=== PATIENT | male | born 1940 | race Caucasian/White ===

== ENCOUNTER → 2016-12-19 | Outpatient (CLI) | payer MEDICARE ==
--- NOTE | 2016-12-19 12:49 | REP ---
Supine abdomen single AP view: There are no comparisons. The bowel gas pattern is normal. There is mild scoliosis convex right at the thoracolumbar junction, possibly positional. There are calcifications in the pelvis inferiorly, likely phleboliths. The skeletal structures and soft tissues are otherwise unremarkable for patient age. Impression: Normal bowel gas pattern. Signed by Tomasz Valdez MD 12/19/2016 12:40 P
[2016-12-19 13:56] LABS: BASO # 0.1 10^3/uL (0.0-0.2); BASO % 0.5 % (0.0-1.0); EOS # 0.1 10^3/uL (0.0-0.50); EOS % 0.9 % (0.0-3.0); IMMATURE GRANULOCYTE % 0.3 % (0-0); LYMPH # 1.3 10^3/uL (1.5-4.5); LYMPH % 9.6 % (24.0-44.0); MEAN CORPUSCULAR HEMOGLOBIN 28.8 pg (27.0-33.0); MEAN CORPUSCULAR HGB CONC 32.6 g/dl (32.0-36.5); MEAN CORPUSCULAR VOLUME 88.4 fl (80.0-96.0); MONO # 0.8 10^3/uL (0.0-0.8); MONO % 6.4 % (0.0-5.0); NEUTROPHILS # 10.7 10^3/uL (1.8-7.7); NEUTROPHILS % 82.3 % (36.0-66.0)
[2016-12-19 15:04] LABS: ALBUMIN/GLOBULIN RATIO 0.98 (1.00-1.93); ALKALINE PHOSPHATASE 79 U/L (45-117); ALT/SGPT 23 U/L (12-78); ANION GAP 7 MEQ/L (8-16); AST/SGOT 18 U/L (15-37); BILIRUBIN,TOTAL 0.5 MG/DL (0.2-1.0); BLOOD UREA NITROGEN 19 MG/DL (7-18); CALCIUM LEVEL 9.1 MG/DL (8.8-10.2); CARBON DIOXIDE LEVEL 29 MEQ/L (21-32); CHLORIDE LEVEL 102 MEQ/L (98-107); CREATININE FOR GFR 1.24 MG/DL (0.70-1.30); GLOMERULAR FILTRATION RATE > 60.0 (>42); GLUCOSE, FASTING 117 MG/DL (83-110); POTASSIUM SERUM 4.1 MEQ/L (3.5-5.1); SODIUM LEVEL 138 MEQ/L (136-145); TOTAL PROTEIN 8.1 GM/DL (6.4-8.2)
[2016-12-20 14:09] LABS: PSA TOTAL 1.9 ng/mL (0.0-4.0)
== END ==
LOC: M WUC 12:04
PROVIDERS: ATTEND Physician Assistant
DX: R10.30 Lower abdominal pain, unspecified (principal)

== ENCOUNTER → 2016-12-19 | Outpatient (REF) | payer MEDICARE, OTHER | LOC: M LAB REF 16:22 | PROVIDERS: ATTEND Physician Assistant | DX: R10.30 Lower abdominal pain, unspecified (principal) ==

== ENCOUNTER 2017-02-15 15:58 | Inpatient (IN) | payer MEDICARE, OTHER ==
[~2017-02-15] VITALS: Ht 165.1 cm; Wt 54.3 kg
[2017-02-15] MEDS ORDERED: LABETALOL HCL 100 MG/20 ML VIAL IV STA (17:46)
--- NOTE | 2017-02-15 18:10 | REPUSA ---
HISTORY: CVA. TECHNIQUE: Axial CT imaging of brain without contrast. DLP= 775.7 mGy-cm. FINDINGS: There is suggestion of a tiny lacunar infarct in the left mid jacque seen on image 6. There is no evidence of intracranial hemorrhage, mass, midline shift or mass effect, or evidence of acute i nfarct seen on the noncontrast examination. The ventricles and sulci are of normal size for this age group. There is decreased CT attenuation in the periventricular white matter consistent with with n onspecific microvascular ischemic changes. No skull fracture seen. Paranasal sinuses and mastoids a re clear. CP angle regions are normal. IMPRESSION: 1. Question of a tiny old lacunar infarct in the left mid jacque, with no other evidence o f intracranial hemorrhage, mass, or acute infarct seen on the noncontrast examination. 2. Mild nonspecific microvascular ischemic changes in the periventricular white matter. Clinical correlation and followup MRI imaging may be warranted as clinically indicated.
[2017-02-15] MEDS ORDERED: ASPIRIN 81 MG CHEW TABLET PO ONE (18:30)
[2017-02-15 18:58] LABS: MEAN CORPUSCULAR HEMOGLOBIN 28.8 pg (27.0-33.0); MEAN CORPUSCULAR HGB CONC 33.3 g/dl (32.0-36.5); MEAN CORPUSCULAR VOLUME 86.7 fl (80.0-96.0); PLATELET COUNT, AUTOMATED 294 10^3/uL (150-450); RED CELL DISTRIBUTION WIDTH 12.6 % (11.5-14.5); WHITE BLOOD COUNT 8.4 10^3/uL (4.0-10.0)
[2017-02-15 19:06] LABS: ANION GAP 6 MEQ/L (8-16); BLOOD UREA NITROGEN 16 MG/DL (7-18); CALCIUM LEVEL 8.9 MG/DL (8.8-10.2); CARBON DIOXIDE LEVEL 29 MEQ/L (21-32); CHLORIDE LEVEL 105 MEQ/L (98-107); CREATININE FOR GFR 1.13 MG/DL (0.70-1.30); GLOMERULAR FILTRATION RATE > 60.0 (>42); GLUCOSE, FASTING 99 MG/DL (83-110); POTASSIUM SERUM 3.7 MEQ/L (3.5-5.1); SODIUM LEVEL 140 MEQ/L (136-145)
[2017-02-15 19:09] LABS: INR 0.93
[2017-02-15] MEDS ORDERED: ACETAMINOPHEN TAB 650MG DOSE (2X325MG) PO PRN (20:15)
[2017-02-15] MEDS ORDERED: ATORVASTATIN 20 MG TAB PO ONE (20:15)
[2017-02-15] MEDS ORDERED: ONDANSETRON 4MG/2ML VIAL (J2405) IV PRN (20:15)
--- NOTE | 2017-02-15 20:23 | HPEPDOC ---
General Date of Admission 02/15/17 Attending Physician: MIRTHA TELLO MD Chief Complaint The patient is a 76-year-old male admitted with a reason for visit of Neuro Symptoms. Source: Patient History of Present Illness 76-year-old male with no significant past medical history, who has not seen a primary care physician since 1986 presents to the ER with a chief complaint of right upper extremity numbness/tingling and right lower extremity imbalance. The patient stated that at approximately 2:30 PM this afternoon he started to feel the aforementioned symptoms. He felt that he had an unsteady gait due to his right lower extremity feeling "wobbly." He reports that he presented to the ER 2 hours after his symptoms had initially started. He denied any complaints of lightheadedness/dizziness, visual blurring, facial droop, numbness/tingling in any other extremity, or any other focal neurological deficits. He presented to the ER for further evaluation and management. In the ER, the patient's neurological symptoms had resolved. NIHSS: 0. A CT scan of the head revealed a questionable tiny old lacunar infarct in the left mid jacque with no other evidence of acute abnormality. The patient will be admitted to the hospitalist service for further workup and monitoring. Home Medications No Active Prescriptions or Reported Meds Allergies Coded Allergies: No Known Allergies (Unverified , 02/15/17) Past Medical History Medical History As noted in HPI. Surgical History None. Family History Father of coronary artery disease in his 40s. Social History * Smoker: former Smoker (smoked 1 pack per day of tobacco for 50+ years, quit 1 year ago) Alcohol: Denies Drugs: denies Lives with his . He is functionally independent at baseline. [employer] . Review of Symptoms Other systems 10 point review of systems negative unless otherwise specified in HPI. Physical Examination General Exam: Positive: Alert, Cooperative, No Acute Distress Eye Exam: Positive: PERRLA, EOMI, Negative: Sclera icteric, Ptosis ENT Exam: Positive: Atraumatic, Mucous membr. moist/pink Neck Exam: Negative: JVD Chest Exam: Positive: Clear to auscultation, Normal air movement Heart Exam: Positive: Rate Normal, Regular Rhythm, Normal S1, Normal S2 Telemetry: Positive: Sinus Abdomen Exam: Positive: Soft, Negative: Tenderness Extremity Exam: Negative: Tenderness, Swelling Neuro Exam: Positive: Normal Speech, Strength at 5/5 X4 ext, Normal Tone, Sensation Intact, Cranial Nerves 3-12 NL Psych Exam: Positive: Oriented x 3 Vital Signs Vital Signs Date Time Temp Pulse Resp B/P (MAP) Pulse Ox O2 Delivery O2 Flow Rate FiO2 02/15/17 18:58 66 02/15/17 18:49 178/99 (125) 02/15/17 18:43 100 Room Air 02/15/17 16:11 97.8 20 Laboratory Data Labs 24H Laboratory Tests 2 02/15/17 16:18: Nucleated Red Blood Cells % (auto) 0.0, Prothrombin Time 12.5, Prothromb Time International Ratio 0.93, Activated Partial Thromboplast Time 27.6, Anion Gap 6L , Glomerular Filtration Rate > 60.0, Blood Urea Nitrogen 16, Creatinine 1.13, Sodium Level 140, Potassium Level 3.7, Chloride Level 105, Carbon Dioxide Level 29, Calcium Level 8.9 CBC/BMP Laboratory Tests 02/15/17 16:18 Red Blood Count 5.10, Mean Corpuscular Volume 86.7, Mean Corpuscular Hemoglobin 28.8, Mean Corpuscular Hemoglobin Concent 33.3, Red Cell Distribution Width 12.6 , Calcium Level 8.9 Plan / VTE VTE Prophylaxis Ordered?: Yes Plan Plan Transient RUE parasthesia, RLE ataxia 2/[address] of the Head noted NIHSS: 0 on examination in the ER MRI/MRA Brain ordered U/S Carotids ordered 2D ECHO ordered EKG noted to be in NSR Lipid Panel, HgA1c ordered to further ascertain risk factors We will start the patient on ASA 81mg, Atorvastatin 81mg Neurochecks We will cont to monitor on Telemetry DVT Prophylaxis Lovenox SC This patient will be admitted under the service of Dr. Tello, who will begin to follow the patient on 02/16/17 at 7 AM. RENATA CARRANZA MD Feb 15, 2017 20:23
[2017-02-15 20:30] LABS: CHOLESTEROL LEVEL 225 MG/DL (<200); TRIGLYCERIDES LEVEL 383 MG/DL (<150)
[2017-02-16] MEDS: hydrALAZINE INJ 20 MG/ML VIAL IV SCH ×5 (00:27→20:49)
[2017-02-16 02:00] VITALS: BP 158/86
[2017-02-16 04:00] VITALS: BP 160/82
[2017-02-16 04:24] LABS: MEAN CORPUSCULAR HEMOGLOBIN 29.2 pg (27.0-33.0); PLATELET COUNT, AUTOMATED 271 10^3/uL (150-450); RED CELL DISTRIBUTION WIDTH 12.7 % (11.5-14.5)
[2017-02-16 04:44] LABS: ALBUMIN 3.8 GM/DL (3.2-5.2); ALBUMIN/GLOBULIN RATIO 0.88 (1.00-1.93); ALKALINE PHOSPHATASE 81 U/L (45-117); ALT/SGPT 23 U/L (12-78); ANION GAP 6 MEQ/L (8-16); AST/SGOT 20 U/L (7-37); BILIRUBIN,TOTAL 0.4 MG/DL (0.2-1.0); BLOOD UREA NITROGEN 14 MG/DL (7-18); CALCIUM LEVEL 8.9 MG/DL (8.8-10.2); CARBON DIOXIDE LEVEL 30 MEQ/L (21-32); CHLORIDE LEVEL 105 MEQ/L (98-107); CREATININE FOR GFR 1.19 MG/DL (0.70-1.30); GLOMERULAR FILTRATION RATE > 60.0 (>42); GLUCOSE, FASTING 93 MG/DL (83-110); MAGNESIUM LEVEL 2.2 MG/DL (1.8-2.4); POTASSIUM SERUM 3.5 MEQ/L (3.5-5.1); SODIUM LEVEL 141 MEQ/L (136-145); TOTAL PROTEIN 8.1 GM/DL (6.4-8.2)
[2017-02-16 08:00] VITALS: BP 155/78
--- NOTE | 2017-02-16 08:03 | REP ---
Bilateral carotid artery duplex ultrasound: Peak flow velocity analysis: RIGHT LEFT ICA Peak flow velocity cm/sec 63 52 ICA Diastolic flow velocity cm/sec 19 17 ICA/CCA Ratio 0.99 0.86 ECA Peak flow velocity cm/sec 54 63 CCA Peak flow velocity cm/sec 63 51 There is shallow atheromatous plaque bilaterally. The peak flow velocities are normal bilaterally. There is antegrade flow in the vertebral arteries bilaterally. Impression: No carotid stenosis on the right or left. Signed by Tomasz Valdez MD 02/16/2017 07:55 A
[2017-02-16] MEDS: ASPIRIN 81 MG ENTERIC TAB PO SCH (08:51)
[2017-02-16] MEDS: ENOXAPARIN 40 MG/0.4 ML SYRINGE (J1650) SC SCH (08:52)
[2017-02-16] MEDS ORDERED: hydroCHLOROthiazide 12.5 MG CAPSULE PO SCH (09:00)
--- NOTE | 2017-02-16 09:08 | REP ---
MRA BRAIN WITHOUT CONTRAST: HISTORY: TIA. 3D [id number] MR angiography was performed at the level of the [place]. An aneurysm is present at the right middle cerebral artery trifurcation. The aneurysm measures 3 x 1.5 mm. The aneurysm projects lateral from the right middle cerebral artery trifurcation. There is no other aneurysm or arteriovenous malformation. Mild atherosclerotic disease involves the cavernous and supraclinoid internal carotid arteries and left posterior cerebral artery. Major intracranial vessels are patent. The right vertebral artery is dominant. The left vertebral artery terminates in the left posterior inferior cerebellar artery. IMPRESSION: 1. 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 2. Atherosclerotic disease as described above. Signed by Mike Osman MD 02/16/2017 09:24 A
--- NOTE | 2017-02-16 09:09 | REP ---
MRI BRAIN WITHOUT CONTRAST: HISTORY: TIA. Areas of increased signal intensity on T2-weighted images are present in the periventricular and subcortical white matter and jacque. This represents small vessel ischemic disease. There is no intraparenchymal hemorrhage, infarct, mass or midline shift. The ventricular system and cortical sulci are dilated consistent with minimal volume loss. There is no extracerebral collection. Mucosal thickening is present in the ethmoid and maxillary sinuses. IMPRESSION: 1. Small vessel ischemic disease. 2. Minimal volume loss. Signed by Mike Osman MD 02/16/2017 09:24 A
--- NOTE | 2017-02-16 09:27 | ECGEPIP ---
Stationary ECG Study [facility] - ED Test Date: 2017-02-15 Pat Name: ERMELINDA PAT Department: Room: [place] [address] Gender: M [address] Justice: SILVINO : 1940 Requested By: LYNNE Schilling Order Number: [id number] Reading MD: Williams Gabriel Measurements Intervals [place] Rate: 64 P: 58 MA: 136 QRS: 10 QRSD: 89 T: 58 QT: 433 QTc: 447 Interpretive Statements SINUS RHYTHM INCOMPLETE RIGHT BUNDLE BRANCH BLOCK POSSIBLE LEFT ATRIAL ENLARGEMENT LEFT VENTRICULAR HYPERTROPHY AND ST-T CHANGE NO PRIORS FOR COMPARISON Electronically Signed On 02-16-2017 9:27:45 EST by Williams Gabriel
[2017-02-16 12:00] VITALS: BP 162/98
[2017-02-16 16:00] VITALS: BP 168/96
--- NOTE | 2017-02-16 16:22 | IPN ---
DATE: 02/16/2017 SUBJECTIVE: The patient tells me that he is feeling well. He has no complaints. He tells me that he feels completely back to normal. OBJECTIVE: VITAL SIGNS: Temperature 98.4, pulse 74, respiratory rate 14, blood pressure 155/78, oxygen saturation 96% on room air. GENERAL: He is a pleasant, elderly, man who is sitting up in bed. He does not appear to be in any acute distress. He is expressive and uses his hands as he speaks. NEUROLOGIC: Cranial nerves II-XII are grossly intact. Neurologically, he is intact with no focal deficits. HEENT: He has moist mucous membranes. No elevation in central venous pressure (CVP). CARDIOVASCULAR: S1, S2, regular. RESPIRATORY: Clear. ABDOMEN: Benign. EXTREMITIES: No clubbing, cyanosis, or edema. LABORATORY STUDIES: WBC 8.0, hemoglobin 14, platelet count 271. Chemistry panel: Sodium 141, potassium 3.5, chloride 105, bicarbonate 30, BUN 14, creatinine 1.1. Lipid panel shows elevated LDL and total cholesterol. TSH is slightly elevated at 8.7. 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 He also had an MRI of the brain that revealed small vessel ischemic disease and mild volume loss. He had carotid duplexes that revealed no carotid stenosis on the right or left. He had a CT scan of the head at the time of admission that revealed question of a tiny old lacunar infarct in the mid left jacque. ASSESSMENT AND PLAN: This is a 76-year-old man who presented with transient right lower extremity and right upper extremity weakness with paresthesias. PROBLEMS: 1. Weakness and paresthesias. There was initially concern for a transient ischemic attack (TIA) versus a cerebrovascular accident (CVA). No obvious CVA on his MRI. This certainly does not rule out the possibility of a TIA. Carotid duplexes have been negative. An echocardiogram is ordered and is currently pending. Physical therapy is set to work with the patient. Neurologically, he has returned to his baseline. 2. Abnormal thyroid-stimulating hormone (TSH). We will check a thyroid panel and he would likely benefit from some initiation of levothyroxine. However, I do not feel that it is likely playing a role in his current presentation. 3. Dyslipidemia. The patient has been started on atorvastatin and I think that this would benefit him. He is also on aspirin. 4. Hypertension. He is on hydrochlorothiazide 12.5 mg. This is a new medication for him. He is written for as-needed hydralazine which he is no longer requiring. His blood pressure appears to be controlled well with hydrochlorothiazide. He has not had any events on telemetry. A hemoglobin A1c is within normal limits. He continues with neurologic checks. 5. A 3 mm aneurysm. I discussed with Dr. South who informed me that these are incidental findings. These are very unlikely to rupture and he recommended a repeat CT angiography of the head to be completed in one year. 6. Deep vein thrombosis (DVT) prophylaxis. The patient is on Lovenox. DISPOSITION: Pending physical therapy (PT) evaluation and echocardiogram report. The patient's clinical syndrome appears to be resolved at this time.
[2017-02-16 16:34] LABS: T UPTAKE 37 % (33-40); THYROXINE (T4) 11.8 UG/DL (4.5-12.0)
[2017-02-16 16:44] LABS: VITAMIN B12 LEVEL 983 PG/ML (247-911)
[2017-02-16 20:04] VITALS: BP 144/98
[2017-02-16] MEDS ORDERED: ATORVASTATIN 20 MG TAB PO SCH (21:00)
[2017-02-17 00:07] VITALS: BP 172/94
[2017-02-17] MEDS: hydrALAZINE INJ 20 MG/ML VIAL IV SCH ×2 (03:00→08:44)
[2017-02-17 04:00] VITALS: BP 142/78
[2017-02-17 05:45] LABS: MEAN CORPUSCULAR HEMOGLOBIN 28.7 pg (27.0-33.0); MEAN CORPUSCULAR HGB CONC 33.3 g/dl (32.0-36.5); MEAN CORPUSCULAR VOLUME 86.3 fl (80.0-96.0); PLATELET COUNT, AUTOMATED 274 10^3/uL (150-450); WHITE BLOOD COUNT 8.7 10^3/uL (4.0-10.0)
[2017-02-17 06:03] LABS: ALBUMIN 3.8 GM/DL (3.2-5.2); ALBUMIN/GLOBULIN RATIO 0.88 (1.00-1.93); BILIRUBIN,TOTAL 0.8 MG/DL (0.2-1.0); CALCIUM LEVEL 8.9 MG/DL (8.8-10.2); CREATININE FOR GFR 1.29 MG/DL (0.70-1.30); GLOMERULAR FILTRATION RATE 57.8 (>42); MAGNESIUM LEVEL 2.2 MG/DL (1.8-2.4); POTASSIUM SERUM 3.5 MEQ/L (3.5-5.1); TOTAL PROTEIN 8.1 GM/DL (6.4-8.2)
--- NOTE | 2017-02-17 06:08 | ECHO ---
DATE OF PROCEDURE: 02/16/2017 REFERRING PHYSICIAN: Dr. Eliceo Bonilla INDICATION: Transient ischemic attack (TIA). HEIGHT: 165 cm. WEIGHT: 56 kg. DIMENSIONS: IVS: 0.9 LV: 4.4 LVPW: 0.7 LA: 3.0 Aorta: 3.3 FINDINGS: The study is of fair technical quality. The patient is in sinus rhythm. Left ventricle is of normal size and normal systolic function with estimated left ventricular ejection fraction (LVEF) approximately 60-65%. Right ventricle is also normal size and systolic function. Both atria appear normal. Aortic, mitral and tricuspid valves appear normal. Pulmonic valve was not well seen. No pericardial effusion is noted. Inferior vena cava is normal size. Aortic root, aortic arch and visualized segment of abdominal aorta appear normal. Doppler interrogation reveals no aortic stenosis and trace aortic insufficiency. There is trace mitral insufficiency. No significant tricuspid insufficiency is seen. Mitral inflow pattern and tissue Doppler imaging of the mitral annulus reveal grade 1 diastolic dysfunction. CONCLUSIONS: 1. Study is of fair technical quality. 2. Normal LV size and systolic function, grade 1 diastolic dysfunction. 3. No hemodynamically significant valvular disease. 4. Normal central venous pressure. 5. Unable to estimate pulmonary artery pressure. COMMENT: Subacute bacterial endocarditis (SBE) is prophylaxis is not recommended. The study does not provide obvious explanation for cause of TIA.
[2017-02-17 08:00] VITALS: BP 170/98
[2017-02-17 08:43] VITALS: BP 170/98
[2017-02-17] MEDS: ASPIRIN 81 MG ENTERIC TAB PO SCH (08:43)
[2017-02-17] MEDS: ENOXAPARIN 40 MG/0.4 ML SYRINGE (J1650) SC SCH (08:44)
[2017-02-17] MEDS ORDERED: LISINOPRIL 5 MG TAB PO SCH (09:00)
[2017-02-17] MEDS ORDERED: INFLUENZA VIRUS VACCINE HIGH DOSE 0.5 ML SYRINGE (90662) IM ONE (09:00)
[2017-02-17 11:45] VITALS: BP 146/88
[2017-02-17] MEDS ORDERED: ATOR1TAB21 PO (12:25)
[2017-02-17] MEDS ORDERED: LISI-542 PO (12:25)
[2017-02-17] MEDS ORDERED: ASPI81TAEC PO (12:25)
--- NOTE | 2017-02-17 14:56 | DSES ---
DATE OF ADMISSION: 02/16/2017 DATE OF DISCHARGE: 02/17/17 PRIMARY CARE PROVIDER: None. Arrangements are made for the patient to see Mike Bishop in 10 days. FINAL DIAGNOSES: Transient ischemic attack (TIA). Abnormal TSH. Dyslipidemia. Hypertension. 3 mm aneurysm. Poorly compliant. HISTORY OF PRESENT ILLNESS: This is a 76-year-old male patient with no significant past medical history, has not see a primary care provider since 1986 , who presented to the emergency room with complaint of right upper extremity numbness and tingling, and right lower extremity imbalance. The patient stated that the symptoms started at 2:30 p.m. on the day of admission and felt that he had unsteady gait due to his right lower extremity feeling wobbly and reported that presented to the emergency department 2 hours after his symptoms initially had started. Denies any complaints of lightheadedness, dizziness, visual disturbances, facial droop, numbness, tingling of left upper and lower extremities or any other neurological deficits. The symptoms lasted approximately 2 hours and subsequently resolved. Subsequently, patient was admitted to the hospital TIA. Patient at baseline smokes. HOSPITAL COURSE: Patient admitted to the hospital. MRI/MRA of the brain have been done. MRA of the brain shows a 3 mm middle cerebral artery, right middle cerebral artery trifurcation aneurysm. MRI of the brain shows small vessel ischemic disease, minimal volume loss. Carotid Doppler shows no carotid artery stenosis. Echocardiogram was also done which showed no significant pathology. Case was discussed with neurosurgery, Dr. South who recommended annual followup for the aneurysm. Blood pressure medication was started. Patient was started on aspirin and statin. Currently returned to baseline. Able to ambulate. Physical therapy evaluation appreciated. Patient currently is comfortable. Telemetry appreciated. Ready for discharge for further care as an outpatient. Counseling services provided. VITAL SIGNS: Temperature 98, pulse 72, respirations 18, blood pressure 146/88, pulse oximetry 96% on room air. GENERAL: Patient alert and oriented times three. No acute distress. HEENT: Normocephalic, atraumatic. PULMONARY: Bilaterally clear to auscultation. CARDIAC: Regular rate and rhythm. Normal S1 and S2. ABDOMEN: Soft, nontender. Positive bowel sounds. EXTREMITIES: No clubbing, cyanosis, or edema. LABORATORIES: WBC 8.7, hemoglobin and hematocrit 14.2/42.7, platelets 274. Chemistries: Sodium 140, potassium 2.5, chloride 104, bicarb 29, BUN 22, creatinine 1.29, TSH 8.7, free T4 4.4. DISCHARGE MEDICATIONS: - aspirin 81 mg by mouth daily - Lipitor 40 mg by mouth at bedtime - lisinopril 4 mg by mouth twice a day DISCHARGE INSTRUCTIONS: Patient instructed to followup with new primary care provider, Mike Bishop, in 10 days and to consider neurology outpatient referral by primary care provider as well as neurovascular to [facility] for further evaluation of the patient's aneurysm. Blood pressure controlled. Further blood pressure control and medication adjustment as per primary care provider and followup repeat kidney function as per primary care provider. Return to the hospital as soon as possible if symptoms return. Smoking cessation counseling was provided. Time spent counseling the patient and arranging discharge 35 minutes. MTDD
== END 2017-02-17 14:58 | disposition home or self-care (01) | DRG 69 ==
LOC: M ED 15:58 → M ED INP 20:04 → M PCU 02-16 02:08 → OBSVTOIN 02-16 11:33
PROVIDERS: ADMIT Internal Medicine; ATTEND Hospitalist
DX: G45.9 Transient cerebral ischemic attack, unspecified (principal); E78.5 Hyperlipidemia, unspecified; I10 Essential (primary) hypertension; Z91.19 Patient's noncompliance with other medical treatment and regimen; I67.1 Cerebral aneurysm, nonruptured; Z79.82 Long term (current) use of aspirin; Z79.899 Other long term (current) drug therapy; Z87.891 Personal history of nicotine dependence

== ENCOUNTER → 2017-02-25 | Outpatient (REF) | payer MEDICARE, OTHER ==
[~2017-02-25] MED LIST: ASPI81TAEC PO; ATOR1TAB21 PO; LISI-542 PO
[2017-02-25 12:02] LABS: CREATININE FOR GFR 1.38 MG/DL (0.70-1.30); GLOMERULAR FILTRATION RATE 53.5 (>42); POTASSIUM SERUM 4.6 MEQ/L (3.5-5.1)
== END ==
LOC: M SFHCPLAZ 09:51
PROVIDERS: ATTEND Family Medicine
DX: I10 Essential (primary) hypertension (principal)

== ENCOUNTER → 2017-03-23 | Outpatient (REF) | payer MEDICARE, OTHER ==
[2017-03-23 12:54] LABS: ANION GAP 7 MEQ/L (8-16); BLOOD UREA NITROGEN 25 MG/DL (7-18); CALCIUM LEVEL 9.1 MG/DL (8.8-10.2); CARBON DIOXIDE LEVEL 29 MEQ/L (21-32); CHLORIDE LEVEL 104 MEQ/L (98-107); CREATININE FOR GFR 1.31 MG/DL (0.70-1.30); GLOMERULAR FILTRATION RATE 56.8 (>42); GLUCOSE, FASTING 94 MG/DL (83-110); POTASSIUM SERUM 4.5 MEQ/L (3.5-5.1); SODIUM LEVEL 140 MEQ/L (136-145)
== END ==
LOC: M SFHCPLAZ 10:03
DX: I10 Essential (primary) hypertension (principal)
CPT/HCPCS: 80048

== ENCOUNTER → 2017-05-11 | Outpatient (CLI) | payer MEDICARE, OTHER | LOC: M RAD 09:13 | DX: Z13.6 Encounter for screening for cardiovascular disorders (principal); I10 Essential (primary) hypertension | CPT/HCPCS: 76775 ==

== ENCOUNTER → 2017-09-17 | Outpatient (CLI) | payer MEDICARE, OTHER | LOC: M WUC 16:44 | DX: M25.511 Pain in right shoulder (principal) | CPT/HCPCS: 73030 ==

== ENCOUNTER → 2017-11-11 | Outpatient (REF) | payer MEDICARE, OTHER ==
[2017-11-11 12:32] LABS: ALBUMIN 3.9 GM/DL (3.2-5.2); ANION GAP 6 MEQ/L (8-16); BLOOD UREA NITROGEN 18 MG/DL (7-18); CARBON DIOXIDE LEVEL 30 MEQ/L (21-32); CHLORIDE LEVEL 105 MEQ/L (98-107); CHOLESTEROL LEVEL 130 MG/DL (<200); CHOLESTEROL RISK RATIO 2.321 (<5); CREATININE FOR GFR 1.43 MG/DL (0.70-1.30); GLOMERULAR FILTRATION RATE 51.3 (>42); GLUCOSE, FASTING 113 MG/DL (70-100); HDL CHOLESTEROL 56 MG/DL (>40); LDL CHOLESTEROL 58.2 MG/DL (<100); NON-HDL-C 74 MG/DL; PHOSPHORUS LEVEL 3.1 MG/DL (2.5-4.9); POTASSIUM SERUM 4.1 MEQ/L (3.5-5.1); SODIUM LEVEL 141 MEQ/L (136-145); TRIGLYCERIDES LEVEL 79 MG/DL (<150)
== END ==
LOC: M LABDRAW1 11:52
DX: E78.5 Hyperlipidemia, unspecified (principal); Z86.73 Personal history of transient ischemic attack (TIA), and cerebral infarction without residual deficits
CPT/HCPCS: 80069

== ENCOUNTER → 2017-11-27 | Outpatient (CLI) | payer MEDICARE, OTHER | LOC: M RAD 14:41 | DX: I67.1 Cerebral aneurysm, nonruptured (principal) | CPT/HCPCS: 70544 ==

== ENCOUNTER → 2018-10-22 | Outpatient (REF) | payer MEDICARE, OTHER ==
[2018-10-22 13:00] LABS: BLOOD UREA NITROGEN 18 MG/DL (7-18); CARBON DIOXIDE LEVEL 28 MEQ/L (21-32); CHLORIDE LEVEL 107 MEQ/L (98-107); CREATININE FOR GFR 1.21 MG/DL (0.70-1.30); GLOMERULAR FILTRATION RATE > 60.0 (>42); GLUCOSE, FASTING 94 MG/DL (70-100); POTASSIUM SERUM 4.1 MEQ/L (3.5-5.1); SODIUM LEVEL 141 MEQ/L (136-145)
== END ==
LOC: M LABDRAW1 11:54
PROVIDERS: ATTEND Family Medicine
DX: Z00.00 Encounter for general adult medical examination without abnormal findings (principal)

== ENCOUNTER 2019-01-12 15:03 | Emergency (ER) | payer MEDICARE, OTHER ==
[~2019-01-12] VITALS: Ht 165.1 cm; Wt 55.9 kg
[2019-01-12] MEDS ORDERED: PERCOCET 5MG/325MG TAB PO ONE (16:45)
[2019-01-12] MEDS ORDERED: ceFAZolin SOD 2 GM in IV 1 EA IV ONE (16:45)
--- NOTE | 2019-01-12 16:46 | REP ---
LEFT SECOND DIGIT: Four views of the left second digit performed. There is a linear nondisplaced fracture at the distal aspect of the distal phalanx. I see no other evidence of acute fracture or dislocation. Arthritic changes in the form of joint space narrowing, subchondral sclerosis and spurring are noted at the joint between the scaphoid and trapezium and base of first metacarpal. Electronically Signed by Tomasz Lemus MD 01/13/2019 02:37 P
[2019-01-12] MEDS ORDERED: ADACEL/BOOSTRIX VACCINE (DIPHTH/PERTUSS/ACELL/TETANUS)0.5ML SYR (90715) IM ONE (18:45)
[2019-01-12] MEDS ORDERED: KEFL500C17 PO (19:12)
[2019-01-12] MEDS ORDERED: OXYC1TAB23 PO (19:12)
[2019-01-12 19:31] VITALS: BP 139/69
== END 2019-01-12 19:33 | disposition home or self-care (01) ==
LOC: M ED 15:03
DX: S62.661B Nondisplaced fracture of distal phalanx of left index finger, initial encounter for open fracture (principal); M25.742 Osteophyte, left hand; M85.842 Other specified disorders of bone density and structure, left hand; Y92.007 Garden or yard of unspecified non-institutional (private) residence as the place of occurrence of the external cause; W27.1XXA Contact with garden tool, initial encounter; I10 Essential (primary) hypertension; Z87.891 Personal history of nicotine dependence; Z79.891 Long term (current) use of opiate analgesic; Z79.82 Long term (current) use of aspirin; Z79.899 Other long term (current) drug therapy
CPT/HCPCS: 73140; 90471; 90715; 96365; 99284; J0690

== ENCOUNTER → 2020-01-30 | Outpatient (CLI) | payer MEDICARE, OTHER ==
[~2020-01-30] MED LIST changes: +KEFL500C17 PO; +OXYC1TAB23 PO
--- NOTE | 2020-01-30 13:56 | REP ---
INDICATION: [facility] FOR SCREENING FOR LUNG CA. COMPARISON: None. TECHNIQUE: Axial noncontrast images from the thoracic inlet to the upper abdomen using low-dose lung screening technique (LDCT). As per the protocol, only lung window images were sent to the read station for interpretation. FINDINGS: There is evidence of biapical pleuroparenchymal scarring. The lung torres appear hyperexpanded. There is a 6 mm size nodule in the right middle lobe. There is evidence of basilar fibrotic change. There is cylindrical bronchiectasis. Grossly the mediastinum and pulmonary masha are within normal limits. Grossly the imaged upper abdomen and imaged osseous structures are within normal limits. There are no pleural or pericardial effusions. IMPRESSION: 1. 6 mm sized right middle lobe nodule. According to the revised Fleischner Society criteria, lung rads category 4A. Three-month follow-up is recommended. 2. Other findings and chronic lung field changes as described above. <Electronically signed by Johann Silva > 01/30/20 [id number]
== END ==
LOC: M RAD 10:46
PROVIDERS: ATTEND Student in an Organized Health Care Education/Training Program
DX: R91.8 Other nonspecific abnormal finding of lung field (principal); Z12.2 Encounter for screening for malignant neoplasm of respiratory organs

== ENCOUNTER → 2020-05-15 | Outpatient (REF) | payer MEDICARE, OTHER ==
[~2020-05-15] MED LIST changes: +ASPI-569 PO; -ASPI81TAEC PO; -LISI-542 PO; +LISI-898 PO
== END ==
LOC: M SFHCPLAZ 15:42
PROVIDERS: ATTEND Family Medicine
DX: R91.1 Solitary pulmonary nodule (principal)

== ENCOUNTER → 2020-05-16 | Outpatient (CLI) | payer MEDICARE, OTHER ==
[2020-05-16 11:06] LABS: CREATININE FOR GFR 1.3 MG/DL (0.70-1.30); GLOMERULAR FILTRATION RATE 56.8 (>42); POTASSIUM SERUM 3.9 MEQ/L (3.5-5.1)
== END ==
LOC: M LAB 09:34
PROVIDERS: ATTEND Student in an Organized Health Care Education/Training Program
DX: R91.1 Solitary pulmonary nodule (principal)

== ENCOUNTER → 2020-05-23 | Outpatient (CLI) | payer MEDICARE, OTHER ==
[2020-05-23 12:48] LABS: CALCIUM LEVEL 9.4 MG/DL (8.8-10.2); CHOLESTEROL RISK RATIO 2.309 (<5); CREATININE FOR GFR 1.36 MG/DL (0.70-1.30); POTASSIUM SERUM 4.6 MEQ/L (3.5-5.1)
[2020-05-23 13:47] LABS: HEMOGLOBIN A1c 5.7 %
== END ==
LOC: M LAB 11:18
PROVIDERS: ATTEND Student in an Organized Health Care Education/Training Program
DX: N18.9 Chronic kidney disease, unspecified (principal); Z79.899 Other long term (current) drug therapy

== ENCOUNTER → 2020-05-30 | Outpatient (CLI) | payer MEDICARE, OTHER ==
[~2020-05-30] MED LIST changes: +ISOVUE-370 76% 100ML VIAL As Ordered ONE
--- NOTE | 2020-05-30 09:39 | REP ---
INDICATION: RT MIDDLE LOBE PULMONARY NODULE. COMPARISON: Low-dose lung screening chest CT dated 01/30/2020 that identified a 6 mm right lung nodule. TECHNIQUE: The study is performed with IV contrast. FINDINGS: The 6 mm lung nodule identified previously in the lateral segment of the right middle lobe is unchanged in size and is identified today on image 76. The lack of interval change could versus lesion to a category 2 lung nodule with the probability of malignancy less than 1%. No other lung nodules or masses are identified. There are no infiltrates or pleural effusions. There is minor dependent atelectasis in the posterior lung torres. There is a single enlarged aorta cul pulmonic mediastinal window node measuring up to 11 mm short axis. This is unchanged from the comparison study. There is no mediastinal, hilar or axillary lymph node enlargement otherwise. The thoracic aorta is unremarkable. The cardiac size is normal. There is no pericardial effusion. Upper abdomen: There is no adrenal nodule or mass. The visualized areas of the liver, gallbladder, pancreas and spleen are unremarkable. There are no lytic, blastic or destructive skeletal changes. IMPRESSION: There is no size change in the 6 mm lung nodule identified previously in the right middle lobe., therefore, this nodules converted to a category 2 lung nodule with the probability of malignancy less than 1%. There is an enlarged aorta coal pulmonic mediastinal window lymph node measuring up to 11 mm short axis. This is unchanged from the comparison study. Because of the enlarged mediastinal node I would recommend an additional follow-up chest CT in 3 months for more assurance, as there are no other comparison chest CTs. The lung nodule only requires annual low-dose lung screening chest CT for follow-up. <Electronically signed by Tomasz Valdez > 05/30/20 [id number]
== END ==
LOC: M RAD 08:06
PROVIDERS: ATTEND Student in an Organized Health Care Education/Training Program
DX: R91.8 Other nonspecific abnormal finding of lung field (principal)
CPT/HCPCS: 71260; Q9967

== ENCOUNTER → 2020-12-07 | Outpatient (REF) | payer MEDICARE, OTHER ==
[~2020-12-07] MED LIST changes: -ISOVUE-370 76% 100ML VIAL As Ordered ONE
== END ==
LOC: M SFHCPLAZ 09:39
PROVIDERS: ATTEND Family Medicine
DX: Z53.20 Procedure and treatment not carried out because of patient's decision for unspecified reasons (principal)

== ENCOUNTER → 2020-12-07 | Outpatient (CLI) | payer MEDICARE, OTHER ==
[2020-12-07 13:39] LABS: CALCIUM LEVEL 9.3 MG/DL (8.8-10.2); CREATININE FOR GFR 1.26 MG/DL (0.70-1.30); GLOMERULAR FILTRATION RATE 58.8 (>42); POTASSIUM SERUM 4.7 MEQ/L (3.5-5.1)
== END ==
LOC: M PLALAB 09:52
PROVIDERS: ATTEND Student in an Organized Health Care Education/Training Program
DX: N17.9 Acute kidney failure, unspecified (principal)
CPT/HCPCS: 36415; 80048; 82570; 84300; G0463

== ENCOUNTER → 2021-07-04 | Outpatient (CLI) | payer MEDICARE, OTHER ==
[~2021-07-04] MED LIST changes: -LISI-898 PO; +LISI5TAB11 PO
[2021-07-04 17:40] LABS: BILIRUBIN,TOTAL 0.6 MG/DL (0.2-1.0); CALCIUM LEVEL 9.6 MG/DL (8.8-10.2); CREATININE FOR GFR 1.33 MG/DL (0.70-1.30); GLOMERULAR FILTRATION RATE 55.2 (>42); POTASSIUM SERUM 4.2 MEQ/L (3.5-5.1); TOTAL PROTEIN 7.4 GM/DL (6.4-8.2)
== END ==
LOC: M PLALAB 15:07
PROVIDERS: ATTEND Student in an Organized Health Care Education/Training Program
DX: I10 Essential (primary) hypertension (principal)

== ENCOUNTER → 2021-09-12 | Outpatient (CLI) | payer MEDICARE, OTHER | LOC: M RAD 11:18 | PROVIDERS: ATTEND Student in an Organized Health Care Education/Training Program | DX: N18.30 Chronic kidney disease, stage 3 unspecified (principal) ==

== ENCOUNTER → 2022-04-08 | Outpatient (CLI) | payer MEDICARE, OTHER ==
[2022-04-08 16:09] LABS: ALBUMIN 3.9 G/DL (3.2-5.2); BILIRUBIN,TOTAL 0.5 MG/DL (0.3-1.2); CALCIUM LEVEL 9.6 MG/DL (8.3-10.6); CHOLESTEROL RISK RATIO 4.74 (<5); CREATININE FOR GFR 1.35 MG/DL (0.70-1.30); GLOMERULAR FILTRATION RATE 54.1 (>35); HDL CHOLESTEROL 46.2 MG/DL (>40); LDL CHOLESTEROL 149.8 MG/DL (<100); POTASSIUM SERUM 4.2 MMOL/L (3.5-5.1)
[2022-04-08 16:16] LABS: BASO # 0.1 10^3/uL (0.0-0.2); CREATININE, URINE 241.5 MG/DL; EOS # 0.2 10^3/uL (0.0-0.5); EOS % 2.9 % (0.0-3.0); HEMATOCRIT 42.5 % (42.0-52.0); HEMOGLOBIN 13.6 g/dl (13.5-17.5); LYMPH # 1.8 10^3/uL (1.5-5.0); LYMPH % 25.5 % (24.0-44.0); MAU/CREAT RATIO 11.5 MCG/MG (0.0-30.0); MEAN CORPUSCULAR HEMOGLOBIN 28.8 pg (27.0-33.0); MONO # 0.7 10^3/uL (0.0-0.8); MONO % 9.8 % (2.0-8.0); NEUTROPHILS # 4.2 10^3/uL (1.5-8.5); NEUTROPHILS % 60.7 % (36.0-66.0); PLATELET COUNT, AUTOMATED 266 10^3/uL (150-450); RED BLOOD COUNT 4.72 10^6/uL (4.30-6.10); WHITE BLOOD COUNT 6.9 10^3/uL (4.0-10.0)
== END ==
LOC: M PLALAB 12:12
PROVIDERS: ATTEND Student in an Organized Health Care Education/Training Program
DX: E78.5 Hyperlipidemia, unspecified (principal); I10 Essential (primary) hypertension

== ENCOUNTER → 2022-04-10 | Outpatient (CLI) | payer MEDICARE, OTHER ==
[~2022-04-10] MED LIST changes: +ISOVUE-370 76% 100ML VIAL As Ordered ONE
== END ==
LOC: M RAD 13:29
PROVIDERS: ATTEND Student in an Organized Health Care Education/Training Program
DX: R91.1 Solitary pulmonary nodule (principal)
CPT/HCPCS: 71260; Q9967

== ENCOUNTER → 2022-12-15 | Outpatient (REF) | payer MEDICARE, OTHER ==
[~2022-12-15] MED LIST changes: -ISOVUE-370 76% 100ML VIAL As Ordered ONE
[2022-12-15 16:30] LABS: MAU/CREAT RATIO 9.4 MCG/MG (0.0-30.0)
== END ==
LOC: M SFHCPLAZ 15:30
PROVIDERS: ATTEND Student in an Organized Health Care Education/Training Program
DX: I10 Essential (primary) hypertension (principal); E78.5 Hyperlipidemia, unspecified

== ENCOUNTER → 2025-01-10 | Outpatient (REF) | payer MEDICARE, OTHER | LOC: M SFHCPLAZ 13:29 | PROVIDERS: ATTEND Family Medicine | DX: Z53.9 Procedure and treatment not carried out, unspecified reason (principal) ==

== ENCOUNTER → 2025-01-10 | Outpatient (CLI) | payer MEDICARE, OTHER ==
[2025-01-10 15:25] LABS: PLATELET COUNT, AUTOMATED 259 10^3/uL (150-450)
[2025-01-10 16:00] LABS: ALT/SGPT 16.0 U/L (7.0-40); AST/SGOT 25.0 U/L (<34); CALCIUM LEVEL 9.9 MG/DL (8.3-10.6); CARBON DIOXIDE LEVEL 29.0 MMOL/L (20-31); CHLORIDE LEVEL 104.0 MMOL/L (98-107); CHOLESTEROL LEVEL 253.0 MG/DL (<200); CHOLESTEROL RISK RATIO 5.11 (<5); CREATININE FOR GFR 1.31 MG/DL (0.70-1.30); GLOMERULAR FILTRATION RATE 54.0 (>35); LDL CHOLESTEROL 175.7 MG/DL (<100); NON-HDL-C 203.5 MG/DL; POTASSIUM SERUM 4.3 MMOL/L (3.5-5.1); SODIUM LEVEL 142.0 MMOL/L (136-145); TRIGLYCERIDES LEVEL 139.0 MG/DL (<150)
== END ==
LOC: M PLALAB 13:55
PROVIDERS: ATTEND Family Medicine
DX: I12.9 Hypertensive chronic kidney disease with stage 1 through stage 4 chronic kidney disease, or unspecified chronic kidney disease (principal); N18.31 Chronic kidney disease, stage 3a; E78.5 Hyperlipidemia, unspecified